=== PATIENT | male | born 1995 | race Two or more races ===

== ENCOUNTER 2018-08-10 13:08 | Emergency (ER) | payer MEDICAID ==
[~2018-08-10] VITALS: Ht 167.6 cm; Wt 86.2 kg
[2018-08-10 13:50] VITALS: BP 116/71
== END 2018-08-10 15:02 | disposition home or self-care (01) ==
LOC: ER 13:14
DX: S60.022A Contusion of left index finger without damage to nail, initial encounter (principal); F17.210 Nicotine dependence, cigarettes, uncomplicated; F12.10 Cannabis abuse, uncomplicated; W23.0XXA Caught, crushed, jammed, or pinched between moving objects, initial encounter; Y93.89 Activity, other specified; Y99.8 Other external cause status; Y92.89 Other specified places as the place of occurrence of the external cause
CPT/HCPCS: 73140

== ENCOUNTER 2025-06-20 09:34 | Emergency (ER) | payer MEDICAID ==
[~2025-06-20] VITALS: Ht 167.6 cm; Wt 83.0 kg
--- NOTE | 2025-06-20 09:45 | ED.PDOC ---
HPI Comments 29-year-old male presents to the ER with no prior MHx associated with a chief complaint of a lac. Patient reports that he was at work when he accidentally cut himself with a a glass that broke giving him a 1.5 cm linear laceration to the right forearm. Pt was able to remove the piece of glass after the injury. Patient is right-hand dominant. Now c/o pain around the injury. Rated as moderate. Denies chills, fever, N/V/D, CP, SOB. No associated symptoms. Chief Complaint: Laceration Time Seen by MD: 09:30 Primary Care Provider: MEENAKSHI Reviewed Notes: Nurses Notes, Medications, Allergies Allergies: Coded Allergies: NO KNOWN ALLERGIES (Unverified , 03/16/12) Home Meds Active Scripts Ibuprofen Micronized (Ibuprofen) 600 Mg Tab, 600 MG PO TIDPRN PRN for 10 Days, #30 TAB 0 Refills Prov:SANKET VIERA DIESEL TECHNICIAN 06/20/25 Cephalexin Monohydrate (Cephalexin) 500 Mg Cap, 1 CAP PO QID for 5 Days, #20 CAP 0 Refills Prov:SANKET VIERA DIESEL TECHNICIAN 06/20/25 Information Source: Patient Mode of Arrival: Ambulatory Severity: Moderate Severity of Laceration: Controlled Bleeding Complexity: Intermediate Timing: Minutes Prehospital treatment: None Laceration Location: Other (Right forearm) Mechanism: Glass Last Tetanus: > 5 Years Laceration Length (cm): 1 (Laceration is 1.5 cm) Skin Type: Linear Tendon Injury: 0% Appearance of Wound No foreign body, no active bleeding Tender: Moderate Associated Signs and Symptoms: None Past Medical History PAST MEDICAL HISTORY: Denies Surgical History: Denies all surgeries Family History Family History: Reviewed,noncontributory to illness, Unknown Social History Smoker: Non-Smoker Alcohol: Denies ETOH Use Drugs: Denies Drug Use Lives In: Home Constitutional: denies: chills, diaphoresis, fatigue, fever, malaise, sweats, weakness, others EENTM: denies: blurred vision, double vision, ear bleeding, ear discharge, ear drainage, ear pain, ear ringing, eye pain, eye redness, hearing loss, mouth pain, mouth swelling, nasal discharge, nose bleeding, nose congestion, nose pain, photophobia, tearing, throat pain, throat swelling, voice changes, others Respiratory: denies: cough, hemoptysis, orthopnea, SOB at rest, shortness of breath, SOB with excertion, stridor, wheezing, others Cardiovascular: denies: chest pain, dizzy spells, diaphoresis, Dyspnea on exertion, edema, irregular heart beat, left arm pain, lightheadedness, palpitations, PND, syncope, others Gastrointestinal: denies: abdomen distended, abdominal pain, blood streaked bowels, constipated, diarrhea, dysphagia, difficulty swallowing, hematemesis, melena, nausea, poor appetite, poor fluid intake, rectal bleeding, rectal pain, vomiting, others Genitourinary: denies: burning, dysuria, flank pain, frequency, hematuria, inco ntinence, penile discharge, penile sore, pain, testicle pain, testicle swelling, urgency, others Neurological: denies: dizziness, fainting, headache, left sided numbness, left sided weakness, numbness, paresthesia, pre-existing deficit, right sided numbness, right sided weakness, seizure, speech problems, tingling, tremors, weakness, others Musculoskeletal: denies: back pain, gout, joint pain, joint swelling, muscle pain, muscle stiffness, neck pain, others Integumetry: reports: laceration (1.5 cm); denies: bruises, change in color, change in hair/nails, dryness, lesions, lumps, rash, wounds, others Allergic/Immunocompromised: denies: Difficulty Healing, Frequent Infections, Hives, Itching, others Hematologic/Lymphatic: denies: anemia, blood clots, easy bleeding, easy bruising, swollen glands, others Endocrine: denies: excessive hunger, excessive sweating, excessive thirst, excessive urination, flushing, intolerance to cold, intolerance to heat, unexplained weight gain, unexplained weight loss, others Psychiatric: denies: anxiety, bipolar disorder, depression, hopeless, panic disorder, schizophrenia, sleepless, suicidal, others All Other Systems: Reviewed and Negative Physical Exam Exam Comments 1.5 cm linear laceration to the right forearm, no foreign body, no active bleeding General Appearance: No Apparent Distress, Normal HEENT: Normal ENT Inspection, Pharynx Normal, TMs Normal Neck: Full Range of Motion, Non-Tender, Normal, Normal Inspection Respiratory: Chest Non-Tender, Lungs Clear, No Accessory Muscle Use, No Respiratory Distress, Normal Breath Sounds Cardiovascular: No Edema, No JVD, No Murmur, No Gallop, Normal Peripheral Pulses, Regular Rate/Rhythm Breast Exam: Deferred Gastrointestinal: No Organomegaly, Non Tender, No Pulsatile Mass, Normal Bowel Sounds, Soft Genitalia: Deferred Pelvic: Deferred Rectal: Deferred Extremities: No calf tenderness, Normal capillary refill, Normal inspection, Normal range of motion, Non-tender, No pedal edema Musculoskeletal : Apperance: Normal Neurologic: Alert, monotyper II-XII nml as Tested, No Motor Deficits, Normal Affect, Normal Mood, No Sensory Deficits Cerebellar Function: Normal Reflexes: Normal Skin: Dry, Normal Color, Warm Lymphatic: No Adenopathy Was a procedure done? Was a procedure done?: No Sedation Sedation?: No Laceration Repair : Location Right forearm Length 1.5 cm Anesthetic: Lidocaine Laceration Repair Prep: Saline, by Irrigation, Manual Scrub Laceration Repair Wound Comple: epidermis/dermis repair Laceration Repair: Size (4-0), Simple, Bacitracin, Non-adherent gauze, Gauze Informed consent obtained: Yes Risks, benefits, and alternati: Yes Differential diagnosis Generic Laceration: Abrasion/Contusion, Laceration, Avulsion X-Ray, Labs, Meds, VS Vital Signs Date Time Temp Pulse Resp B/P (MAP) Pulse Ox O2 Delivery O2 Flow Rate FiO2 06/20/25 09:48 98.6 48 18 106/54 (71) 98.6 06/20/25 09:48 48 18 98 Room Air 06/20/25 09:36 97.9 51 20 138/74 100 97.9 Current Medications Medications (Trade) Dose Ordered Sig/Arlette Route Start Time Stop Time Status Last Admin Diphtheria/ Tetanus/Acell Pertussis (Boostrix T-Dap) 0.5 ml ONCE ONCE IM 06/20/25 10:30 06/20/25 10:31 DC 06/20/25 10:33 Neomycin/ Polymyxin/ Bacitracin (Triple Antibiotic) 1 applic ONCE ONCE TOP 06/20/25 10:30 06/20/25 10:31 DC 06/20/25 10:33 X-Ray, Labs, Meds, VS Comment 29-year-old male presents to the ER with no prior MHx associated with a chief complaint of a lac. Patient arrives alert and oriented, ABC's intact, afebrile, vital signs stable, saturating well in room air The skin edges of the laceration were infiltrated with 1% lidocaine The skin surrounding the laceration was scrubbed with Betadine soaked sterile gauze The laceration was irrigated under high-pressure with a 60 mL syringe A total of 1L sterile water was used. Including diluted Betadine solution The laceration was prepped in sterile fashion with sterile drapes On examination under direct light, there was no foreign body seen The laceration was repaired in simple interrupted technique using Ethilon There was no continuing bleeding on repair. There were no complications related to repair Cipro Rx Tdap updated Education and follow-up instructions provided Wound check in 2 days Return sooner for signs of infection such as fevers, increased pain, redness, green, yellow discharge, or any concerns Keep wound dry for 24 to 48 hours; dry dressing may be changed Protect from sunlight and keep area clean and dry. Use soap and water if it gets dirty High risk of possible scarring and education provided on ways to minimize scarring after wound heals Also provided education on possible complications post procedure including wound dehiscence, infection, etc. Time of 1ST Reevaluation: 10:00 Reevaluation 1ST: Unchanged Patient Education/Counseling: Diagnosis, Treatment, Prognosis Family Education/Counseling: No Family Present Departure 1 Departure Time of Disposition: 10:20 Impression: Primary Impression: Forearm laceration Qualified Codes: S51.812A - Laceration without foreign body of left forearm, initial encounter Disposition: HOME / SELF CARE / HOMELESS Condition: Stable e-Prescriptions Ibuprofen Micronized (Ibuprofen) 600 Mg Tab 600 MG PO TIDPRN PRN for 10 Days, #30 TAB 0 Refills Prov: SANKET VIERA NP 06/20/25 Cephalexin Monohydrate (Cephalexin) 500 Mg Cap 1 CAP PO QID for 5 Days, #20 CAP 0 Refills Prov: SANKET VIERA NP 06/20/25 Critical Care Note Critical Care Time?: No Stability Stability form required: No Heart Score Heart Score: Heart Score Response (Comments) Value History N/A 0 EKG N/A 0 Age N/A 0 Risk Factors N/A 0 Troponin N/A 0 Total 0 I personally scribed for SANKET VIERA NP ([employer]) on 06/20/25 at 09:44. Electronically submitted by Rinku Swanson ([email or web address]). SANKET VIERA NP Jun 20, 2025 09:44
[2025-06-20 09:48] VITALS: BP 106/54; PULSE 48; RESP 18; TEMP 98.6; O2SAT 98
[2025-06-20] MEDS ORDERED: CEPH500C PO (10:22)
[2025-06-20] MEDS ORDERED: IBUP1TAB5 PO (10:22)
[2025-06-20] MEDS: NEOMYCIN-BACITRACIN-POLYM UNITDOSE PKG TOP OINT TOP ONE (10:33)
[2025-06-20] MEDS: TETANUS-DIPTH-ACEL PERTUSSIS 0.5ML SYR Tdap IM ONE (10:33)
[2025-06-20] MEDS: LIDOCAINE 1% (LOCAL ANESTH.) PF 5ml SDV ID ONE (10:34)
== END 2025-06-20 10:36 | disposition home or self-care (01) ==
LOC: ER 09:34
DX: S51.811A Laceration without foreign body of right forearm, initial encounter (principal); W25.XXXA Contact with sharp glass, initial encounter; Y93.89 Activity, other specified; Y92.89 Other specified places as the place of occurrence of the external cause; Y99.8 Other external cause status
CPT/HCPCS: 12001; 90471; 90715